=== PATIENT | male | born 1960 | race Caucasian/White ===

== ENCOUNTER 2025-05-06 13:49 | Outpatient (CLI) | payer BC ==
[2025-05-06 14:20] LABS: Estimated GFR - POC 84.0
== END 2025-05-06 13:50 | disposition home or self-care (01) ==
LOC: CSHMRI 13:49
PROVIDERS: ATTEND Urology
DX: R97.20 Elevated prostate specific antigen [PSA] (principal); R33.9 Retention of urine, unspecified; N40.1 Benign prostatic hyperplasia with lower urinary tract symptoms
CPT/HCPCS: 36415; 72197; 82565